=== PATIENT | male | born 2000 | race Caucasian/White ===

== ENCOUNTER → 2025-10-02 | Outpatient (REF) | payer OTHER ==
[2025-10-02 08:49] LABS: SEMEN APPEARANCE OPAQUE (OPAQUE)
[2025-10-02 08:50] LABS: SEMEN VISCOSITY LIQUID (LIQUID); SEMEN VOLUME 5.2 ml (2.0-5.0); SPERM CONCENTRATION 49.9 M/ml (>=15.0); TOTAL PROGRESSIVE SPERM 95.5 M/Ejac.; WBC CONCENTRATION <=1 M/ml (<=1 M/ml)
== END ==
LOC: M SMT 08:42
PROVIDERS: ATTEND Physician Assistant
DX: I86.1 Scrotal varices (principal)